=== PATIENT | male | born 1935 | race Caucasian/White ===

== ENCOUNTER 2020-04-01 07:09 | Outpatient (CLI) | payer OTHER, SELFPAY ==
--- NOTE | 2020-04-01 08:59 | ECG_ITS ---
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 Interpretive Statements NAME OF STUDY: LEXISCAN SESTAMIBI STRESS TEST INDICATION: [Syncope] Procedure: At the baseline the blood pressure was 169/77 mmHg, with a heart rate of 49 bpm. The electrocardiogram showed normal sinus bradycardia, normal axis with normal ST and T's. The Lexiscan was infused over the period Of 20 seconds. A total of 0.4 mg of Lexiscan was infused. The stress phase was continued for a total of 5 minutes. Heart rate at the end of stress phase was 60 bpm, with a blood pressure of 101/61 mmHg. The EKG at the peak infusion revealed sinus rhythm with no significant ST-T wave changes. Sestamibi was injected 20 seconds after Lexiscan infusion. Blood pressure at the end of recovery phase was 122/70 mmHg, with a heart rate of 63 bpm. EKG showed sinus tachycardia without significant ST???T wave changes. Conclusion: 1. Normal EKG response to Lexiscan infusion. 2. No Lexiscan induced chest pain or cardiac arrhythmia. 3. Normal blood pressure and heart rate response. 4. Sestamibi/sestamibi perfusion scan pending; see separate report. Electronically Signed On 04-10-2020 19:58:22 CDT by Ming Rai M.D. [email or web address]/[id number]
--- NOTE | 2020-04-01 09:00 | NMCV_ITS ---
NM xena perf SPECT r/s* [id number] Aakash Mayberry Age: 84 Gender: M : 1935 Exam Date: 04/01/2020 08:46 Ordering Phys: Ming Rai M.D ([email or web address]) Technologist: ASHLI Gallardo Exam Location: [facility] Indications: SYNCOPE STRESS TEST Please see separate stress test report in [facility] for full findings IMAGE PROTOCOL Rest/Stress 1 Lexiscan Day Radiopharmaceutical Dose (mCi) Administration Site Administered by Rest: Tc-99m 10.7 IV ASHLI Gallardo Sestamibi Stress:Tc-99m 32.7 IV ASHLI Gallardo Sestamibi Rest: 01-Apr-2020 60 Discovery 630 Stress: 01-Apr-2020 30 Discovery 630 0.4mg Lexiscan. Images obtained in supine and prone position. SPECT RESULTS Technical Quality: Excellent Raw Data Analysis: Normal Image Corrections: No attenuation or motion correction applied Summed Stress Score: 0 Summed Rest Score: 3 Summed Difference Score: 0 PERFUSION FINDINGS SPECT images demonstrate homogeneous tracer distribution throughout the myocardium. Attenuation artifact is noted in anterior and apical lateral and medial lateral wall.. FUNCTIONAL RESULTS (calculated via Gated SPECT) Stress Image LV EF (%): 70 Stress EDV (mL):102 TID: 1.13 Stress ESV (mL):31 FUNCTIONAL FINDINGS: There is normal left ventricular systolic function. IMPRESSIONS 1. Normal myocardial perfusion with no significant ischemia seen. Normal perfusion study. 2. Normal LV systolic function with EF of 70%. Ming Rai MD (Electronically Signed) Final Date: 03 April 2020 18:58 S
[2020-04-01 09:01] VITALS: BMI 26.6
[2020-04-01 10:05] VITALS: BP 122/70; PULSE 65
== END 2020-04-01 07:10 | disposition home or self-care (01) ==
LOC: CDL 07:10
PROVIDERS: PCP Family Medicine; Visit Provider Internal Medicine
DX: R55 Syncope and collapse (principal)
CPT/HCPCS: 78452; 93017; A9500; J2785

== ENCOUNTER → 2021-11-23 09:48 | Outpatient (BNVA) | payer OTHER, SELFPAY | PROVIDERS: PCP Family Medicine; Referring Provider Family Medicine; Visit Provider Specialist | DX: M16.12 Unilateral primary osteoarthritis, left hip (principal); M25.552 Pain in left hip | CPT/HCPCS: 73502; 99213; 99214 ==

== ENCOUNTER → 2021-12-29 14:32 | Outpatient (BNVA) | payer OTHER, SELFPAY | PROVIDERS: PCP Family Medicine; Referring Provider Specialist; Visit Provider Orthopaedic Surgery | DX: M48.062 Spinal stenosis, lumbar region with neurogenic claudication (principal) | CPT/HCPCS: 72100; 99204; 99213 ==

== ENCOUNTER → 2022-04-19 09:27 | Outpatient (BNVA) | payer OTHER, SELFPAY | PROVIDERS: PCP Family Medicine; Visit Provider Specialist | DX: M16.12 Unilateral primary osteoarthritis, left hip (principal); M48.062 Spinal stenosis, lumbar region with neurogenic claudication | CPT/HCPCS: 73502; 99213 ==

== ENCOUNTER → 2022-05-02 08:02 | Outpatient (BNVA) | payer OTHER, SELFPAY | PROVIDERS: PCP Family Medicine; Visit Provider Orthopaedic Surgery | DX: M48.062 Spinal stenosis, lumbar region with neurogenic claudication (principal) | CPT/HCPCS: 72110; 99214 ==

== ENCOUNTER 2022-05-05 09:29 | Outpatient (CLI) | payer OTHER, SELFPAY ==
--- NOTE | 2022-05-05 10:15 | MR_ITS ---
WS: [id number] MRI LEFT HIP NONCONTRAST TECHNIQUE: Axial T1, axial T2 fat sat, coronal T1, coronal STIR, sagittal T2 fat sat, sagittal T1, an d sagittal T2 fat sat, of both hips. CLINICAL INFORMATION: left hip pain COMPARISON: Radiograph April 19, 2022 FINDINGS: Advanced osteoarthritis LEFT hip with [id number] articulation. Complete loss of joint space. Sclero sis with subchondral cystic change along the femoral head and adjacent acetabulum. Mild flattening of the femoral head. 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 Edema exten ds into the femoral neck and proximal femoral shaft. Mild surrounding soft tissue edema. Small joint effusion. Edema extends into the acetabulum and adjac ent ilium. Again seen is the curvilinear osseous fragment about the acetabular rim. This is better se en on the prior radiograph. Prior postoperative changes RIGHT ERICA. MR/MR hip LT wo con* [id number] IMPRESSION: 1. Advanced osteoarthritis LEFT hip with complete loss of joint space and bone -on-bone articulation. Subchondral cystic change with sclerosis and edema invol ving the femoral head and adjacent acetabulum. 2. Mild flattening of the femoral head with serpiginous low-attenuation change s compatible with avascular necrosis. Edema involves the femoral head extending into the femoral neck and proximal femur. 3. Mild soft tissue edema with capsular thickening about the LEFT hip. Small j oint effusion. 4. Edema extends into the pubic root and LEFT ilium. 5. Prior postoperative changes RIGHT ERICA. 6. Normal bone marrow signal in the sacrum.
== END 2022-05-05 09:30 | disposition home or self-care (01) ==
LOC: RAD 09:30
PROVIDERS: PCP Family Medicine; Visit Provider Specialist
DX: M16.12 Unilateral primary osteoarthritis, left hip; Z98.890 Other specified postprocedural states; Z96.641 Presence of right artificial hip joint; R60.0 Localized edema
CPT/HCPCS: 73721

== ENCOUNTER 2022-05-19 11:08 | Outpatient (CLI) | payer OTHER, SELFPAY ==
--- NOTE | 2022-05-19 11:45 | MR_ITS ---
WS: [id number] MRI LUMBAR SPINE NONCONTRAST TECHNIQUE: Sagittal T1, T2 and STIR imaging. Axial T1 and T2 imaging. CLINICAL INFORMATION: lumbar stenosis COMPARISON: MRI May 05, 2015 FINDINGS: Mild lumbar curve. No acute compression. Disc bulging worse at L3-L4 and L4-L5. L1-L2: Mild annular bulging. Slight narrowing of the subarticular recess bilaterally. Moderate facet arthropathy. Mild LEFT and no RIGHT foraminal narrowing. L2-L3: Mild annular bulging. Mild central canal stenosis. Impingement traversing L3 nerve roots bilat erally. Mild to moderate facet arthropathy. Small bilateral foraminal protrusions with moderate RIGHT and mild LEFT foraminal narrowing. L3-L4: Slight retrolisthesis. Mild disc bulging in combination with facet arthropathy ligamentum flav um hypertrophy results in severe central canal stenosis. Central canal measures 7 mm in AP dimension. Moderate bilateral foraminal narrowing impinges the exiting L3 nerve roots bilaterally worse in the RIGHT. L4-L5: Mild annular bulging. Moderate central canal stenosis. Impingement traversing L5 nerve roots b ilaterally. Moderate facet arthropathy with ligamentum flavum hypertrophy. Severe LEFT and moderate R IGHT foraminal narrowing. L5-S1: Mild disc bulging with slight effacement of ventral thecal sac. Moderate facet arthropathy. Mo derate LEFT greater than RIGHT bony foraminal narrowing. Advanced facet arthropathy. Impingement on t he traversing S1 nerve roots bilaterally. Visualized pelvic bony structures: Normal. Paravertebral soft tissues: Normal. MR/MR lumbar spine wo con* [id number] IMPRESSION: 1. Severe central canal stenosis L3-L4 progressed compared to 2014.Central can al measures 7 mm in AP dimension. 2. Moderate to severe central canal stenosis L4-L5 progressed compared to 2014 . 3. Moderate central canal stenosis L2-L3 has also progressed. 4. Multilevel moderate to severe foraminal narrowing worse at bilateral L3-L4 worse on the RIGHT, LEFT L4-L5, and bilateral L5-S1. 5. Shallow disc bulge L5-S1 slightly impinges the traversing S1 nerve roots. 6. Moderate facet arthropathy with ligamentum flavum hypertrophy L3-L5.
== END 2022-05-19 11:09 | disposition home or self-care (01) ==
LOC: RAD 11:10
PROVIDERS: PCP Family Medicine; Visit Provider Orthopaedic Surgery
DX: M48.062 Spinal stenosis, lumbar region with neurogenic claudication (principal); M51.27 Other intervertebral disc displacement, lumbosacral region; M47.816 Spondylosis without myelopathy or radiculopathy, lumbar region
CPT/HCPCS: 72148

== ENCOUNTER → 2022-05-23 08:33 | Outpatient (BNVA) | payer OTHER, SELFPAY | PROVIDERS: PCP Family Medicine; Visit Provider Orthopaedic Surgery | DX: M48.062 Spinal stenosis, lumbar region with neurogenic claudication (principal); I48.91 Unspecified atrial fibrillation; Z79.01 Long term (current) use of anticoagulants | CPT/HCPCS: 99214 ==

== ENCOUNTER → 2022-05-30 10:56 | Outpatient (BNVA) | payer OTHER, SELFPAY | PROVIDERS: PCP Family Medicine; Visit Provider Internal Medicine Cardiovascular Disease | DX: I10 Essential (primary) hypertension (principal); Z79.01 Long term (current) use of anticoagulants; M48.062 Spinal stenosis, lumbar region with neurogenic claudication; Z86.718 Personal history of other venous thrombosis and embolism; I48.91 Unspecified atrial fibrillation; Z87.891 Personal history of nicotine dependence | CPT/HCPCS: 99213 ==

== ENCOUNTER → 2022-06-01 07:49 | Outpatient (BNVA) | payer OTHER, SELFPAY | PROVIDERS: PCP Family Medicine; Visit Provider Orthopaedic Surgery | DX: M48.062 Spinal stenosis, lumbar region with neurogenic claudication (principal) | CPT/HCPCS: 99214 ==

== ENCOUNTER 2022-07-04 12:09 | Outpatient (CLI) | payer OTHER, SELFPAY | END 2022-07-04 12:10 | disposition home or self-care (01) | LOC: RT 07-10 12:11 | PROVIDERS: PCP Family Medicine; Visit Provider Orthopaedic Surgery | DX: Z13.6 Encounter for screening for cardiovascular disorders (principal); I44.30 Unspecified atrioventricular block; I49.8 Other specified cardiac arrhythmias; I44.4 Left anterior fascicular block; I45.10 Unspecified right bundle-branch block; I21.9 Acute myocardial infarction, unspecified | CPT/HCPCS: 93005 ==

== ENCOUNTER 2022-07-10 08:23 | Day surgery (SDC) | payer OTHER, SELFPAY ==
[2022-07-04 10:23] VITALS: BMI 28.3
--- NOTE | 2022-07-04 10:37 | ECG_ITS ---
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 Measurements Intervals [place] Rate: 49 P: 62 MI: 258 QRS: -54 QRSD: 166 T: 36 QT: 440 QTc: 400 Interpretive Statements SINUS BRADYCARDIA WITH SINUS ARRHYTHMIA WITH FIRST DEGREE AV BLOCK RIGHT BUNDLE BRANCH BLOCK [120+ ms QRS DURATION, UPRIGHT V1, 40+ ms S IN I/aVL/V4/V5/V6] LEFT ANTERIOR FASCICULAR BLOCK [QRS AXIS <= -45, QR IN I, RS IN II] PROBABLE SEPTAL MYOCARDIAL INFARCTION , PROBABLY OLD [35 ms Q WAVE IN V1/V2] Compared to ECG 08/07/2018 12:35:56 First degree AV block now present Left anterior fascicular block now present Myocardial infarct finding now present Sinus rhythm no longer present Electronically Signed On 07-04-2022 11:58:50 PORTFOLIO LEAD by Ming Rai M.D. [email or web address].E[email or web address]/[id number]
--- NOTE | 2022-07-04 10:37 | ANES.PREANE2 ---
Pre-Anesthetic Assessment Height/Weight: Height 1.63 m Weight 74.843 kg Operation Date: 07/10/22 07:00 Proposed Procedures p Lumbar Spine Decompression OPEN L3/4 L4/5/L5/S1/62454/34972W4/M48.062(Not Applicable) - Miguel Ángel Hightower, Familial anesthetic complications: PONV Social No alcohol and No tobacco Exam alert, oriented x 3, clear to auscultation bilaterally and regular rate & rhythm Airway Mallampati: Class II Dentition: full Pulmonary None reported CV/HEM Deep Vein Thrombosis and Hypertension None reported Hepatic None reported GI None reported Metabolic None reported Musc/skel None reported Neuropsych slight R facial droop at mouth that causes drooling, suspect he may have had a stroke at one point Anesthetic Plan ASA status: 2 Anesthesia: General Risk of > 500 ml blood loss (7ml/kg in children): No Medications/Allergies Home Medications Medication Instructions Recorded Confirmed Last Taken Type cholecalciferol (vitamin D3) 50 50 mcg PO DAILY 03/15/20 07/04/22 07/03/22 History mcg (2,000 unit) capsule magnesium oxide,aspartate,citr 400 mg PO DAILY 03/15/20 07/04/22 07/03/22 History omega-3 fatty acids 1,000 mg 1,000 mg PO BID 03/15/20 07/04/22 06/06/22 History capsule (Fish Oil Concentrate) tamsulosin 0.4 mg capsule 0.4 mg PO DAILY 03/15/20 07/04/22 07/03/22 History montelukast 10 mg tablet 10 mg PO DAILY 01/04/21 07/04/22 06/27/22 History apixaban 2.5 mg tablet 2.5 mg PO BID #180 tabs 06/13/21 07/04/22 07/04/22 Rx aspirin 81 mg tablet,delayed 81 mg PO DAILY #90 tabs 06/13/21 07/04/22 07/03/22 Rx release (Adult Aspirin Regimen) metoprolol tartrate 25 mg tablet 12.5 mg PO BID PRN Hypertension 02/15/22 07/04/22 07/04/22 History Allergies Allergy/AdvReac Type Severity Reaction Status Date / Time droperidol Allergy nausea Verified 07/04/22 10:16 naproxen Allergy hives Verified 07/04/22 10:16 PFSH Anesthesia Medical History Anticoagulation adequate with anticoagulant therapy Atrial fibrillation History of DVT (deep vein thrombosis) Hypertension Surgical History S/P ear surgery Cancer surgery S/P shoulder replacement Social History Smoking and tobacco status: former smoker Data Anesthesia Cardiac Studies: Sestamibi Stress Test (Cardiology) 04/01/20
[2022-07-10] VITALS (13 sets, daily range): BP systolic 112–164; BP diastolic 51–80; PULSE 49–70; RESP 14–18; TEMP 36.1–36.6; O2SAT 95–100
--- NOTE | 2022-07-10 | XR_ITS ---
WS: [id number] INTRAOPERATIVE TECHNIQUE: 2 Spot fluoroscopic images for intraoperative purposes. FLUOROSCOPY TIME: 6.8 seconds CLINICAL INFORMATION: lumbar decompression COMPARISON: None. FINDINGS: Intraoperative images obtained for lumbar decompression. XR/XR lumbar spine 1V [id number] IMPRESSION: Images obtained for intraoperative purposes.
[2022-07-10] MEDS: sodium chloride 0.9% 1,000 ML 30 ML IV (08:08)
--- NOTE | 2022-07-10 09:22 | P.ANESUD_ITS ---
Pre-Anesthetic Update Pre-Anesthetic Assessment: Date of Surgery/Procedure: 07/10/22 Preop Madonna gnosis: Lumbar stenosis with neurogenic claudication Proposed Procedure: Operation Date: 07/10/22 10:20 Proposed Procedures p Lumbar Spine Decompression OPEN L3/4 L4/5/L5/S1/64857/89180S5/M48.062(Not Applicable) - Miguel Ángel Hightower, DO Any changes to Pre-Anesthetic Assessment?: No Last Intake: Intake Last Liquid Date 07/09/22 Last Liquid Time 21:00 Last Solid Date 07/09/22 Last Solid Time 21:00 Vitals: Temperature 97 F L 07/10/22 08:42 Pulse Rate 59 L 07/10/22 08:42 Pulse Rhythm 07/10/22 08:44 Pulse Strength 3+ Normal 07/10/22 08:44 Respiratory Rate 18 07/10/22 08:42 Blood Pressure 141/80 07/10/22 08:42 Blood Pressure Daisy n 100 07/10/22 08:42 Pulse Oximetry 100 07/10/22 08:42 Oxygen Delivery Me thod 07/10/22 08:44 Exam: Pre-Anes Outpt Exam: alert, oriented x 3, clear to auscultation bilaterally and regular rate & rhythm Cardiac Studies: Sestamibi Stress Test (Cardiology) 04/01
--- NOTE | 2022-07-10 09:55 | PM.HP ---
Providers/Chief Complaint Primary Care Provider: Estelita Hoskins MD Chief Complaint: OPEN LUMBAR DECOMPRESSION L3/4 L4/5 L5/S1 29109/63 History of Present Illness Aakash Mayberry is a 87 year old male back pain. Patient is here today to schedule surgery as discussed in last visit. Patient has received cardiac clearance from his hospice executive director. Chief Complaint:Low back pain Onset: Years ago Duration:Constant Characteristics:Aching, Throbbing, Stabbing Severity: 04/03 Location: Lumbar region Radiating symptoms: Radiates into bilateral lower extremities. Left lateral leg being worse. Aggravating factors: Walking, Any movement Alleviating factors:Heat Neuro deficits: Reports weakness. Denies numbness, tingling, incontinence of bowel/bladder, saddle anesthesia. Prior tx: Physical Therapy Review of Systems General: Reports: 10 or more systems reviewed and unremarkable except in HPI and below Const: Denies: fever(s), chills or body aches Card: Denies: chest pain or orthopnea Resp: Denies: dyspnea, productive cough or wheezing GI: Denies: abdominal pain, nausea or vomiting Musc: Reports: back pain, extremity pain and limited range of motion Skin/Breast: Denies: changes in skin color or dry skin Neuro: Reports: numbness in extremities, weakness in extremities and difficulty walking Psych: Denies: anxiety Mayo/Lymph: Denies: easy bruising or easy bleeding Medications/Allergies Home Medications Medication Instructions Recorded Confirmed Last Taken Type cholecalciferol (vitamin D3) 50 50 mcg PO DAILY 03/15/20 07/04/22 07/09/22 History mcg (2,000 unit) capsule magnesium oxide,aspartate,citr 400 mg PO DAILY 03/15/20 07/04/22 07/09/22 History omega-3 fatty acids 1,000 mg 1,000 mg PO BID 03/15/20 07/04/22 07/09/22 History capsule (Fish Oil Concentrate) tamsulosin 0.4 mg capsule 0.4 mg PO DAILY 03/15/20 07/04/22 07/09/22 History montelukast 10 mg tablet 10 mg PO DAILY 01/04/21 07/04/22 07/09/22 History apixaban 2.5 mg tablet 2.5 mg PO BID #180 tabs 06/13/21 07/04/22 07/09/22 Rx aspirin 81 mg tablet,delayed 81 mg PO DAILY #90 tabs 06/13/21 07/04/22 07/03/22 Rx release (Adult Aspirin Regimen) metoprolol tartrate 25 mg tablet 12.5 mg PO BID PRN Hypertension 02/15/22 07/04/22 07/10/22 History Allergies Allergy/AdvReac Type Severity Reaction Status Date / Time droperidol Allergy nausea Verified 07/10/22 08:37 naproxen Allergy hives Verified 07/10/22 08:37 PFSH Acute PFSH: Medical History Anticoagulation adequate with anticoagulant therapy Atrial fibrillation History of DVT (deep vein thrombosis) Hypertension Surgical History S/P ear surgery Cancer surgery S/P shoulder replacement Social History Smoking and tobacco status: former smoker Vitals/I&O/Wt Last Vital Signs Temp 97 F L 07/10/22 08:42 Pulse 59 L 07/10/22 08:42 Resp 18 07/10/22 08:42 BP 141/80 07/10/22 08:42 Pulse Ox 100 07/10/22 08:42 O2 Del Method 07/10/22 08:44 Physical Exam Narrative: CONSTITUTIONAL: The patient is a normal appearing [] in no apparent distress. GENERAL: Patient in no acute distress. CARDIAC: Regular rate and rhythm. CHEST: Normal inspiratory effort, normal respiratory rate. ABDOMEN: Soft and nontender. SKIN: Clear, warm and intact. NEURO?PSYCH: The patient is alert and oriented to person, place and time. Sensorv /SILT Motor StrengthShoulder abduction C5 5/5Wrist extension C6 5/5Elbow extension C7 5/5Hand Clinical Transformation Specialist C8 5/5Finger abduction T15/5 Radial/ Ulnar/ Median n intact LowerSensory (SILT)Motor StrengthHin flexion L2/3Ant/inner thigh 5/5Hip adduction L2/3 5/5Knee extension L4 Lat thigh, 5/5Toe dorsiflexion L5 5/5Ankle dorsiflexion L5/ B89Wcisqbg flexion S1 5/5 DTRBleeps 2+Triceps 2+Brachioradialis 2+Patellar 2+Achilles 2+ MUSCULOSKELETAL: [] UPPEREXTREMITIES: The patient had full active ROM in fingers, wrist, elbow, and shoulder. The patient demonstrated ability to fully flex/extend/abduct/adduct fingers, make ok sign, cross 2nd/3rd digits, extend 1st digit fully.. Radial pulse 2+, CR<2 seconds. LOWER EXTREMITIES: Pt has full, active ROM of toes, ankle, knee, and hip. Dorsalis pedis/posterior tibialis pulses 2+, CR<2 seconds. SPINE: Skin warm, dry, intact. A&P Assessment and plan (1) Lumbar stenosis with neurogenic claudication: L3-S1 decompression Attestations Medical Necessity Statement*: failed conservtive tx Coding Level of Care Code Acute Code for [facility] Fwd Diagnoses Lumbar stenosis with neurogenic claudication M48.062
[2022-07-10] MEDS: ceFAZolin 2,000 MG in sodium chloride 0.9% (plus) 50 ML 100 MG IV (10:33)
[2022-07-10] MEDS: vancomycin 1,000 MG SDV 1000 MG XX (11:56)
--- NOTE | 2022-07-10 12:03 | SUR.PHASEI ---
1201 Bilat SCDs on and attached to pump. Pump working.
--- NOTE | 2022-07-10 12:07 | P.OP_ITS ---
Operative Report Date of procedure: July 10, 2022 Pre-op diagnosis: Preop Diagnosis Lumbar stenosis with neurogenic claudication Post-op diagnosis: same Procedure done: 1.L3/4 laminectomy with partial facetectomy 2. L4/5 laminectomy withpartial facetectomy 3. L5/S1 laminectomy with partial facetectomy Surgeon: Miguel Ángel Hightower Inbound Call Center Agent: Kai Michael Inbound Call Center Agent: The faculty research assistant, Kai Michael, PAC was needed for his expertise under the microscope. He was important and necessary throughout the procedure to complete in a safe and timely manner. He assisted with patient positioning prepping and draping tissue retraction suctioning of the operative field protection of the dural sac and tissue closure Estimated blood loss (mL): 50 Procedure: 4 51.L3/4 laminectomy with partial facetectomy 2. L4/5 laminectomy withpartial facetectomy 3. L5/S1 laminectomy with partial facetectomy Patient brought to the patient after undergoing anesthesia was placed in the prone position. All areas impingement well-padded. Patient was prepped and draped normal sterile fashion. Skin incision made from L3 down to S1. Plan: Fascia was identified. Subperiosteal dissection was made out to the L5-S1 facets. Retractors were placed. Attention was brought to the L3-4 level first. The spinous processes were taken down at the L3 level with the rongeur and the lamina of L3 was taken down with a high-speed bur and Kerrison rongeurs. The ligamentum flavum was identified and removed from L3-L4 lamina. The medial aspect of facet joints were taken down with a high-speed bur and medial and curved curette. The Kerrison rongeur was used to finish the medial facetectomy. And more of the ligamentum flavum was taken down that was thickened. The L3 nerve was traced out the L3-4 foramen felt to be adequately decompressed. The L4 nerve traced around the L4 pedicle bilaterally felt to be adequately decompressed. Extension was brought to the L4-5 level The spinous processes were taken down at the L4 level with the rongeur and the lamina of L4 was taken down with a high-speed bur and Kerrison rongeurs. The ligamentum flavum was identified and removed from L4/5 lamina. The medial aspect of facet joints were taken down with a high-speed bur and medial and curved curette. The Kerrison rongeur was used to finish the medial facetectomy. And more of the ligamentum flavum was taken down that was thickened. The L4 nerve was traced out the L4/5 foramen felt to be adequately decompressed. The L5 nerve traced around the L5 pedicle bilaterally felt to be adequately decompressed. Extension was brought to the L5/S1 level The spinous processes were taken down at the L5 level with the rongeur and the lamina of L5 was taken down with a high-speed bur and Kerrison rongeurs. The ligamentum flavum was identified and removed from L5/S1 lamina. The medial aspect of facet joints were taken down with a high-speed bur and medial and curved curette. The Kerrison rongeur was used to finish the medial facetectomy. And more of the ligamentum flavum was taken down that was thickened. The L5pwnzq was traced out the L5/S1 foramen felt to be adequately decompressed. The S1 nerve traced around the S1 pedicle bilaterally felt to be adequately decompressed. Extension was brought to the L5/S1 level Wound was then irrigated and closed in layered fashion with 0 Vicryl 2-0 Vicryl and Monocryl suture. Sterile dressings were applied patient was transferred to the PACU in stable addition.
[2022-07-10] MEDS: ondansetron 2 mg/ML SDV 2 mL 4 MG IVP (13:06)
[2022-07-10] MEDS: metoclopramide 5 mg/mL SDV 2 mL 10 MG IVP (13:40)
--- NOTE | 2022-07-10 14:51 | ANE.PACU2 ---
Inpatient post-anesthesia follow up: Airway intact: Yes Vital signs: Temperature 97 F Pulse Rate 62 Respiratory Rate 18 Blood Pressure 112/64 Pulse Oximetry 97 Oxygen Delivery Me thod Room Air Oxygen Flow Rate 6 Fraction of Inspir ed Oxygen Hydration adequate: Yes Nausea and vomiting: No Pain level: 4 Mental status: Baseline
== END 2022-07-10 14:29 | disposition home or self-care (01) ==
PROVIDERS: PCP Family Medicine; Visit Provider Orthopaedic Surgery
PROC: (CPT 63005; principal; 2022-07-10 10:20)
DX: M48.062 Spinal stenosis, lumbar region with neurogenic claudication (principal); Z86.718 Personal history of other venous thrombosis and embolism; I10 Essential (primary) hypertension; Z79.82 Long term (current) use of aspirin; I48.91 Unspecified atrial fibrillation; Z79.01 Long term (current) use of anticoagulants
CPT/HCPCS: 63047; 63048 ×2; 72020; 76000; J0690; J1170; J2405; J2704; J2710; J2765; J3010; J3370; J3490; J7030

== ENCOUNTER → 2022-07-20 09:24 | Outpatient (BNVA) | payer OTHER, SELFPAY | PROVIDERS: PCP Family Medicine; Visit Provider Physician Assistant | DX: M48.062 Spinal stenosis, lumbar region with neurogenic claudication (principal); Z98.890 Other specified postprocedural states | CPT/HCPCS: 99024 ==

== ENCOUNTER → 2022-08-03 10:20 | Outpatient (BNVA) | payer OTHER, SELFPAY | PROVIDERS: PCP Family Medicine; Visit Provider Physician Assistant | DX: Z98.890 Other specified postprocedural states (principal) | CPT/HCPCS: 99024 ==

== ENCOUNTER → 2022-12-05 13:39 | Outpatient (BNVA) | payer OTHER, SELFPAY | PROVIDERS: PCP Family Medicine; Visit Provider Internal Medicine | DX: I48.91 Unspecified atrial fibrillation (principal); Z79.01 Long term (current) use of anticoagulants; M48.062 Spinal stenosis, lumbar region with neurogenic claudication; I10 Essential (primary) hypertension; Z86.718 Personal history of other venous thrombosis and embolism; Z87.891 Personal history of nicotine dependence; Z79.82 Long term (current) use of aspirin | CPT/HCPCS: 99214 ==

== ENCOUNTER 2023-02-23 14:39 | Emergency (ER) | payer OTHER, SELFPAY ==
[2023-02-23 15:51] VITALS: BP 136/69; PULSE 52; RESP 18; TEMP 36.6; O2SAT 98
--- NOTE | 2023-02-23 16:03 | XRR_ITS ---
PROCEDURE INFORMATION: Exam: XR Chest Exam date and time: 02/23/2023 4:14 PM Age: 87 years old Clinical indication: Other: Palpitations TECHNIQUE: Imaging protocol: Radiologic exam of the chest. Views: 1 view. COMPARISON: CR XR chest 2V* [id number] 08/07/2018 12:49 PM FINDINGS: Lungs: Lungs are clear. Pleural spaces: There is no pleural effusion or pneumothorax. Heart/Mediastinum: Cardiomediastinal contours are unremarkable. Bones/joints: There is a right shoulder arthroplasty in satisfactory alignment. No acute fracture. XR/XR chest 1V portable [id number] IMPRESSION: No acute findings.
--- NOTE | 2023-02-23 16:03 | ECG_ITS ---
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 Measurements Intervals [place] Rate: 51 P: 1 NE: 275 QRS: 117 QRSD: 165 T: 44 QT: 454 QTc: 421 Interpretive Statements SINUS BRADYCARDIA WITH SINUS ARRHYTHMIA WITH FIRST DEGREE AV BLOCK RIGHT BUNDLE BRANCH BLOCK [120+ ms QRS DURATION, UPRIGHT V1, 40+ ms S IN I/aVL/V4/V5/V6] LEFT POSTERIOR FASCICULAR BLOCK [QRS AXIS > 109, INFERIOR Q] POSSIBLE SEPTAL MYOCARDIAL INFARCTION , PROBABLY OLD [30 ms Q WAVE IN V1/V2] Compared to ECG 07/04/2022 10:37:21 Left posterior fascicular block now present Left anterior fascicular block no longer present Myocardial infarct finding still present Electronically Signed On 02-23-2023 20:31:33 CDT by Tori Griffith M.D. [email or web address].Field Squaredsimpson general [email or web address] Family [email or web address].Nuubo/store/NU/[id number]
[2023-02-23 17:10] LABS: Basophils # 0.1 10^3/uL (0.0-0.1); Basophils % 0.8 %; Eosinophils # 0.2 10^3/uL (0.0-0.8); Eosinophils % 2.4 %; Lymphocytes # 2.1 10^3/uL (0.8-4.8); Lymphocytes % 31.2 %; Mean Corpuscular HGB Conc 33.1 g/dL (30-55); Mean Corpuscular Hemoglobin 31.2 pg (27-33); Mean Corpuscular Volume 94.4 fl (82-101); Monocytes # 0.3 10^3/uL (0.2-0.9); Monocytes % 5.2 %; Neutrophils # 3.96 10^3/uL (1.8-7.7); Neutrophils % 60.1 %; Nucleated Red Blood Cells % 0 %; Platelet Count 179 10^3/cmm (157-399); Red Blood Count 4.45 10^6/uL (3.85-5.65); Red Cell Distribution Width 13.2 % (12.1-15.1); White Blood Count 6.58 10^3/uL (3.29-11.43)
[2023-02-23 17:17] LABS: INR 1.01 (0.8-1.2)
[2023-02-23 17:22] LABS: Anion Gap 14.1 (5-19); Blood Urea Nitrogen 30 mg/dL (8-23); Carbon Dioxide 25 mmol/L (22-29); Chloride 106 mmol/L (98-107); Potassium 5.1 mmol/L (3.5-5.1); Sodium 140 mmol/L (136-145)
[2023-02-23 17:23] LABS: Alanine Aminotransferase 6 U/L (0-41); Albumin Level 4.4 g/dL (3.5-5.2); Alkaline Phosphatase 65 U/L (40-130); Aspartate Amino Transferase 9 U/L (0-40); Calcium 9.2 mg/dL (8.5-10.5); Globulin 1.8 g/dL (1.3-4.6); Glucose 97 mg/dL (65-115); Osmolality Calculated 296 mOsm/kg (285-295); Total Bilirubin 0.4 mg/dL (0.15-1.2); Total Protein 6.2 g/dL (6.6-8.7)
[2023-02-23 17:34] LABS: Troponin(5th) Baseline 30 ng/L (0-15)
[2023-02-23 18:00] VITALS: BP 157/70; PULSE 54; RESP 18; O2SAT 96
--- NOTE | 2023-02-23 18:03 | ECG_ITS ---
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 Measurements Intervals [place] Rate: 52 P: 106 MO: 276 QRS: 243 QRSD: 167 T: 181 QT: 447 QTc: 416 Interpretive Statements SINUS BRADYCARDIA WITH FIRST DEGREE AV BLOCK RIGHT AXIS DEVIATION [QRS AXIS > 100] RIGHT BUNDLE BRANCH BLOCK [120+ ms QRS DURATION, UPRIGHT V1, 40+ ms S IN I/aVL/V4/V5/V6] Compared to ECG 02/23/2023 15:52:55 Right-axis deviation now present Sinus arrhythmia no longer present Left posterior fascicular block no longer present Myocardial infarct finding no longer present Electronically Signed On 02-23-2023 20:55:26 CDT by Tori Griffith M.D. [id number]
--- NOTE | 2023-02-23 18:18 | PC.NURSE ---
PT PLACED ON CONTINUOUS NIBP ,SPO2, AND CM
--- NOTE | 2023-02-23 18:26 | W.ED.CHESTPA ---
HPI - Chest Pain General: Chief Complaint: Chest Pain Stated Complaint: Irregular HR, [facility] sent Time Seen by Provider: 02/23/23 18:12 Source: patient Mode of arrival: ambulatory Limitations: no limitations History of Present Illness: 87-year-old male states over the last 2 to 3 months he felt like he has been having his heart skipping beats. He states that this feels irregular at times he denies any chest pain he denies any shortness of breath. He denies any worsening. Factors. Patient denies any fever he is resting comfortably currently. Associated symptoms: Deny abdominal pain, dyspnea, fever(s), nausea or vomiting Review of Systems Const: Denies: fever(s), chills, body aches or change in appetite Eyes: Denies: blurry vision or eye discomfort ENMT: Denies: throat pain or dental pain Card: Reports: irregular heart rhythm; Denies: chest pain Resp: Denies: dyspnea GI: Denies: abdominal pain, nausea, vomiting or diarrhea Musc: Denies: neck pain or back pain Skin/Breast: Denies: rash Neuro: Denies: headache(s) PFSH ED PFSH: Medical History Anticoagulation adequate with anticoagulant therapy Atrial fibrillation History of DVT (deep vein thrombosis) Hypertension Surgical History S/P ear surgery Cancer surgery S/P shoulder replacement Social History Smoking and tobacco status: former smoker Physical Exam Const: COMMON NORMALS: no acute distress, patient oriented x3 and healthy appearing HENMT: COMMON NORMALS: normocephalic and atraumatic HEAD & SCALP: normocephalic and atraumatic Eye: COMMON NORMALS: Equal, round and reactive pupils present and EOMs intact bilaterally PUPIL: Yes Equal, round and reactive pupils present Neck/C-Spine: COMMON NORMALS: full ROM and supple Chest: COMMONS NORMALS: normal inspection of the chest and normal palpation of entire chest wall Resp: COMMON NORMALS: normal respiratory effort, No retractions, No use of accessory muscles and clear to auscultation bilaterally AUSCULTATION: clear to auscultation bilaterally Cardio: COMMON NORMALS: regular rate, regular rhythm and No murmurs present (Cardio) RATE: regular rate RHYTHM: regular rhythm GI: COMMON NORMALS: Normal to inspection, nondistended, normoactive bowel sounds present, Soft to palpation, non-tender and no masses PALPATION: Yes Soft to palpation Extremity: COMMON NORMALS: normal to inspection and full ROM Neuro: COMMON NORMALS: patient oriented x3, moves all extremities and no focal motor deficits Psych: COMMON NORMALS: mental status grossly normal, Normal thought process present and cooperative THOUGHT PROCESS: Normal thought process present Skin: COMMON NORMALS: no rashes or lesions noted and no wounds GENERAL SKIN EXAM: no rashes or lesions noted Course Vital Signs: Vital signs: Vital Signs Temperature 97.9 F 02/23/23 15:51 Pulse Rate 54 L 02/23/23 18:00 Respiratory Rate 18 02/23/23 18:00 Blood Pressure 157/70 02/23/23 18:00 Pulse Oximetry 96 02/23/23 18:00 Oxygen Delivery Me thod Room Air 02/23/23 15:51 MDM - Chest Pain Medical Decision Making Patient presents here with feeling irregular heart rhythm his blood pressure heart rate here has been normal his heart rate has been in the 50s but no severe bradycardia his troponins here are normal we will get him follow-up with 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 Medical Records I reviewed the patient's medical records. Lab Data I reviewed the patient's lab results. 02/23/23 16:55 02/23/23 16:55 Laboratory Results WBC 6.58 10^3/uL (3.29-11.43) 02/23/23 16:55 RBC 4.45 10^6/uL (3.85-5.65) 02/23/23 16:55 Hgb 13.90 g/dL (11.27-16.99) 02/23/23 16:55 Hct 42.0 % (37-53) 02/23/23 16:55 MCV 94.4 fl (82-101) 02/23/23 16:55 MCH 31.2 pg (27-33) 02/23/23 16:55 MCHC 33.1 g/dL (30-55) 02/23/23 16:55 RDW 13.2 % (12.1-15.1) 02/23/23 16:55 Plt Count 179 10^3/cmm (157-399) 02/23/23 16:55 MPV 9.0 fL (7.4-10.4) 02/23/23 16:55 Neut % (Auto) 60.1 % 02/23/23 16:55 Lymph % (Auto) 31.2 % 02/23/23 16:55 [place] % (Auto) 5.2 % 02/23/23 16:55 Eos % (Auto) 2.4 % 02/23/23 16:55 Baso % (Auto) 0.8 % 02/23/23 16:55 Neut # (Auto) 3.96 10^3/uL (1.8-7.7) 02/23/23 16:55 Lymph # (Auto) 2.1 10^3/uL (0.8-4.8) 02/23/23 16:55 [place] # (Auto) 0.3 10^3/uL (0.2-0.9) 02/23/23 16:55 Eos # (Auto) 0.2 10^3/uL (0.0-0.8) 02/23/23 16:55 Baso # (Auto) 0.1 10^3/uL (0.0-0.1) 02/23/23 16:55 Nucleated RBC % (auto) 0 % 02/23/23 16:55 Nucleated RBCs # 0.0 /100WBC 02/23/23 16:55 PT 13.70 SECONDS (12.1-14.9) 02/23/23 16:55 INR 1.01 (0.8-1.2) 02/23/23 16:55 Sodium 140 mmol/L (136-145) 02/23/23 16:55 Potassium 5.1 mmol/L (3.5-5.1) 02/23/23 16:55 Chloride 106 mmol/L (98-107) 02/23/23 16:55 Carbon Dioxide 25 mmol/L (22-29) 02/23/23 16:55 Anion Gap 14.1 (5-19) 02/23/23 16:55 BUN 30 mg/dL (8-23) H 02/23/23 16:55 Creatinine 1.7 mg/dL (0.7-1.2) H 02/23/23 16:55 GFR Calculation Not Reportable 02/23/23 16:55 Glucose 97 mg/dL (65-115) 02/23/23 16:55 Calculated Osmolality 296 mOsm/kg (285-295) H 02/23/23 16:55 Calcium 9.2 mg/dL (8.5-10.5) 02/23/23 16:55 Magnesium 2.0 mg/dL (1.7-2.3) 02/23/23 16:55 Total Bilirubin 0.4 mg/dL (0.15-1.2) 02/23/23 16:55 AST 9 U/L (0-40) 02/23/23 16:55 ALT 6 U/L (0-41) 02/23/23 16:55 Alkaline Phosphatase 65 U/L (40-130) 02/23/23 16:55 Troponin T Baseline 30 ng/L (0-15) H 02/23/23 16:55 Troponin T 120 Minute 30.29 ng/L (0-15) H 02/23/23 19:17 Delta Troponin T 0.29 ABS# (0-10) 02/23/23 19:17 Total Protein 6.2 g/dL (6.6-8.7) L 02/23/23 16:55 Albumin 4.4 g/dL (3.5-5.2) 02/23/23 16:55 Globulin 1.8 g/dL (1.3-4.6) 02/23/23 16:55 Discharge Plan Discharge Patient Disposition: Home Clinical Impression: Irregular heart rhythm Condition: Stable Prescriptions: No Action apixaban 2.5 mg tablet 2.5 mg PO BID Qty: 180 3RF aspirin [Adult Aspirin Regimen] 81 mg tablet,delayed release (DR/EC) 81 mg PO DAILY Qty: 90 3RF montelukast 10 mg tablet 10 mg PO DAILY tamsulosin 0.4 mg capsule 0.4 mg PO DAILY cholecalciferol (vitamin D3) 50 mcg (2,000 unit) capsule 50 mcg PO DAILY omega-3 fatty acids [Fish Oil Concentrate] 1,000 mg capsule 1,000 mg PO BID metoprolol tartrate 25 mg tablet 12.5 mg PO BID PRN (Reason: Hypertension) cetirizine [Allergy Relief (cetirizine)] 10 mg tablet 10 mg PO DAILY PRN fluticasone propionate [Allergy Relief (fluticasone)] 50 mcg/actuation spray,suspension 2 spray intranasal DAILY Rx Instructions: administer into each nostril memantine 5 mg tablet 5 mg PO BID hydrocodone-acetaminophen 5-325 mg tablet 1 - 2 tab PO .Q4-6H Qty: 40 0RF Discharge Orders: Discharge ED (Routine); Ordered 02/23/23 Ordered By: Kavita Curtis Referrals: Estelita Hoskins MD [Primary Care Provider] - Ming Rai M.D [Physician] - 1-3 days Discharge Diet: Advance as tolerated Discharge Activity: Resume usual activity Patient Instructions: Heart Palpitations (ED) Coding Level of Care Code ED Holistic Health Practitioner for Sergey Maradiaga
[2023-02-23 19:48] LABS: Troponin 5 2HR 30.29 ng/L (0-15)
[2023-02-23 19:53] LABS: Troponin 5 2HR Delta 0.29 ABS# (0-10)
[2023-02-23 20:14] VITALS: BP 169/70; PULSE 58; RESP 19; O2SAT 97
[2023-02-23 20:17] VITALS: BP 169/70; PULSE 58; O2SAT 97
--- NOTE | 2023-02-26 07:52 | DCPLANNER ---
Addendum entered by Adriana Byrd 02/27/23 14:19: Patient has a follow up appointment scheduled for Tuesday March 14, 2023 at 3:45 with Caro Leija at [facility]. Original Note: manager home improvement had message to schedule a follow up appointment for patient with cardiology. manager home improvement sent patients information to the front office staff at [facility]. Patients information will be printed and reviewed. Clinic will call patient with appointment information.
== END 2023-02-23 20:27 | disposition home or self-care (01) ==
PROVIDERS: Emergency Medicine; Emergency Provider Emergency Medicine; PCP Family Medicine
DX: R00.9 Unspecified abnormalities of heart beat (principal); Z79.82 Long term (current) use of aspirin; I10 Essential (primary) hypertension; Z87.891 Personal history of nicotine dependence
CPT/HCPCS: 36415; 71045; 80053; 83735; 84484; 85025; 85610; 93005; 99285

== ENCOUNTER → 2023-03-14 15:29 | Outpatient (BNVA) | payer OTHER, SELFPAY | PROVIDERS: PCP Family Medicine; Referring Provider Emergency Medicine; Visit Provider Nurse Practitioner Family | DX: I48.91 Unspecified atrial fibrillation (principal); Z79.01 Long term (current) use of anticoagulants; Z79.82 Long term (current) use of aspirin; Z87.891 Personal history of nicotine dependence | CPT/HCPCS: 99213 ==

== ENCOUNTER → 2023-06-05 15:16 | Outpatient (BNVA) | payer OTHER, SELFPAY | PROVIDERS: PCP Family Medicine; Visit Provider Internal Medicine | DX: I48.91 Unspecified atrial fibrillation (principal); Z79.01 Long term (current) use of anticoagulants; Z79.82 Long term (current) use of aspirin; M48.062 Spinal stenosis, lumbar region with neurogenic claudication; I10 Essential (primary) hypertension; Z86.718 Personal history of other venous thrombosis and embolism; Z87.891 Personal history of nicotine dependence | CPT/HCPCS: 99214 ==

== ENCOUNTER → 2023-07-18 08:07 | Outpatient (BNVA) | payer OTHER, SELFPAY | PROVIDERS: PCP Family Medicine; Visit Provider Nurse Practitioner Family | DX: D48.5 Neoplasm of uncertain behavior of skin (principal); Z85.828 Personal history of other malignant neoplasm of skin; L57.0 Actinic keratosis; L57.8 Other skin changes due to chronic exposure to nonionizing radiation; D22.4 Melanocytic nevi of scalp and neck; L81.4 Other melanin hyperpigmentation | CPT/HCPCS: 17000; 69100; 99203 ==

== ENCOUNTER → 2023-08-08 09:17 | Outpatient (BNVA) | payer OTHER, SELFPAY | PROVIDERS: PCP Family Medicine; Visit Provider Dermatology | DX: D03.22 Melanoma in situ of left ear and external auricular canal (principal) | CPT/HCPCS: 11643 ==

== ENCOUNTER → 2023-08-15 08:50 | Outpatient (BNVA) | payer OTHER, SELFPAY | PROVIDERS: PCP Family Medicine; Visit Provider Dermatology | DX: D03.22 Melanoma in situ of left ear and external auricular canal (principal); Z48.1 Encounter for planned postprocedural wound closure | CPT/HCPCS: 14060 ==

== ENCOUNTER → 2023-08-20 13:31 | Outpatient (BNVA) | payer OTHER, SELFPAY | PROVIDERS: PCP Family Medicine; Visit Provider Dermatology | DX: Z48.817 Encounter for surgical aftercare following surgery on the skin and subcutaneous tissue (principal) | CPT/HCPCS: 99212 ==

== ENCOUNTER → 2023-08-27 10:32 | Outpatient (BNVA) | payer OTHER, SELFPAY | PROVIDERS: PCP Family Medicine; Visit Provider Dermatology | DX: Z85.828 Personal history of other malignant neoplasm of skin (principal); Z48.02 Encounter for removal of sutures; L82.1 Other seborrheic keratosis; D18.01 Hemangioma of skin and subcutaneous tissue | CPT/HCPCS: 99213 ==

== ENCOUNTER → 2023-12-19 09:51 | Outpatient (BNVA) | payer OTHER, SELFPAY | PROVIDERS: PCP Family Medicine; Referring Provider Family Medicine; Visit Provider Specialist | DX: M16.12 Unilateral primary osteoarthritis, left hip (principal); M25.551 Pain in right hip; M70.62 Trochanteric bursitis, left hip | CPT/HCPCS: 20610; 73523; 99214; J1100; J2795; J3301 ==

== ENCOUNTER → 2024-01-14 14:07 | Outpatient (BNVA) | payer OTHER, SELFPAY | PROVIDERS: PCP Family Medicine; Visit Provider Nurse Practitioner Family | DX: D48.5 Neoplasm of uncertain behavior of skin (principal); L82.1 Other seborrheic keratosis; D18.01 Hemangioma of skin and subcutaneous tissue; L57.8 Other skin changes due to chronic exposure to nonionizing radiation; Z85.828 Personal history of other malignant neoplasm of skin; Z86.006 Personal history of melanoma in-situ | CPT/HCPCS: 11102; 99213 ==

== ENCOUNTER 2024-01-30 13:30 | Outpatient (CLI) | payer OTHER, SELFPAY ==
--- NOTE | 2024-01-30 13:37 | USCV_ITS ---
Aakash Mayberry Age: 88 Gender: M : 1935 Exam Date: 01/30/2024 13:41 Ordering Phys: Estelita Hoskins MD Technologist: CT Exam Location: [facility] [place] Indication: double vision Risk Factors: Previous Vascular Surgery: Right Brachial BP: / Left Brachial BP: / Right Left Velocity (cm/s) Spectral Plaque Velocity (cm/s) Spectral Plaque Syst/Diast Broadening Syst/Diast Broadening 80.10/ 9.10 Prox CCA 103.70/ 18.70 93.40/ 11.70 Mid CCA 66.60 / 15.40 71.30/ 11.70 Distal CCA 44.70 / 13.40 29.50/ 6.10 Prox ICA 50.80 / 11.20 43.30/ 8.90 Mid ICA 38.20 / 15.10 44.50/ 10.20 Distal ICA 45.30 / 16.10 73.90 ECA 53.60 0.60 ICA/CCA 1.10 Antegrade Vertebral Antegrade 30.10/ 8.80 cm/s 40.30/ 12.20 cm/s Bi Subclavian Bi 69.00 99.60 FINDINGS Comparison: none available. No significant elevation of systolic or diastolic velocities. Mild, focal, calcified plaque and intimal thickening through the bifurcation. Antegrade vertebral arteries. CONCLUSIONS Bilateral ICA stenosis less than 50%. Mild carotid atherosclerosis. Dr. Priscila Tapia DO (Electronically Signed) Final Date: 30 January 2024 14:42 S
== END 2024-01-30 13:32 | disposition home or self-care (01) ==
PROVIDERS: PCP Family Medicine; Visit Provider Family Medicine
DX: I65.23 Occlusion and stenosis of bilateral carotid arteries (principal); H53.2 Diplopia; Z01.89 Encounter for other specified special examinations
CPT/HCPCS: 93880

== ENCOUNTER → 2024-02-01 10:22 | Outpatient (BNVA) | payer OTHER, SELFPAY | PROVIDERS: PCP Family Medicine; Visit Provider Dermatology | DX: C44.612 Basal cell carcinoma of skin of right upper limb, including shoulder (principal); L82.1 Other seborrheic keratosis; L98.8 Other specified disorders of the skin and subcutaneous tissue | CPT/HCPCS: 17262; 99213 ==

== ENCOUNTER 2024-02-13 10:56 | Outpatient (CLI) | payer OTHER, SELFPAY ==
--- NOTE | 2024-02-13 11:05 | MR_ITS ---
WS: [id number] MRI HEAD WITH CONTRAST TECHNIQUE: Sagittal T1, T2 axial, T2 axial FLAIR, axial susceptibility weighted imaging, axial diffus ion weighted images, and coronal T2 images were obtained. Pre and post-T1 axial and post T1 coronal i mages. ADC and FSPGR images. CLINICAL INFORMATION: DOUBLE VISION COMPARISON: MRI 2019 FINDINGS: No evidence of restricted diffusion to suggest acute ischemia. Ventricular system and basal cisterns are patent. Normal posterior fossa. Normal vascular flow voids at the skull base. No extra-axial flui d collections. No evidence of mass or mass effect. Paranasal sinuses are well aerated. Mild mucosal t hickening in the mastoid air cells. Mild small vessel changes with moderate parenchymal volume loss slightly progressed since 2019. Singl e punctate focus of hemosiderin in the RIGHT periatrial white matter. Normal optic chiasm and pituitary infundibulum. Moderate symmetric atrophy temporal lobes and hippoca mpal formations. No abnormal gadolinium enhancement. Normal optic chiasm and pituitary infundibulum. Normal dural venous sinuses. MR/MR head wo/w con [id number] IMPRESSION: 1. No evidence of restricted diffusion to suggest acute ischemia. 2. Mild small vessel changes with moderate parenchymal volume loss slightly pr ogressed since 2019. 3. Single punctate focus of hemosiderin in the RIGHT periatrial white matter. 4. No abnormal gadolinium enhancement. 5. Normal optic chiasm and pituitary infundibulum.
[2024-02-13] MEDS: gadobenate dimeglumine 20 mL vial 16 ML IV (12:00)
== END 2024-02-13 10:57 | disposition home or self-care (01) ==
LOC: RAD 10:57
PROVIDERS: PCP Family Medicine; Visit Provider Family Medicine
DX: H53.2 Diplopia (principal)
CPT/HCPCS: 70553; A9577

== ENCOUNTER → 2024-03-04 14:49 | Outpatient (BNVA) | payer OTHER, SELFPAY | PROVIDERS: PCP Family Medicine; Visit Provider Internal Medicine | DX: I48.91 Unspecified atrial fibrillation (principal); Z79.01 Long term (current) use of anticoagulants; M48.062 Spinal stenosis, lumbar region with neurogenic claudication; I10 Essential (primary) hypertension; Z86.718 Personal history of other venous thrombosis and embolism | CPT/HCPCS: 99213 ==